=== PATIENT | male | born 1945 | race Caucasian/White ===

== ENCOUNTER 2023-07-01 12:24 | Emergency (ER) | payer MEDICARE, OTHER ==
[2023-07-01] MEDS: DIATR MEGLU/DIATRIZOATE SODIUM 120 ML BOTTLE PO STA ×2 (14:09→14:21)
[2023-07-01] MEDS: MINERAL OIL ENEMA 133 ML BOTTLE RC STA (14:10)
[2023-07-01] MEDS: DIATRIZOATE MEGLU/DIATRIZO SOD 30 ML BOTTLE PO STA (14:21)
--- NOTE | 2023-07-01 14:56 | ED Physician Documentation ---
History of Present Illness - Stated complaint Stated Complaint: ABD PX,CONSTIPATION - Chief complaint Chief Complaint: Abd Pain - History obtained from History obtained from: Patient - History of Present Illness Timing: Today Pain level max: 7 Pain level now: 7 - Additonal information Additional information: Patient is a 77-year-old male who is visiting from [place]. He is complaining of constipation. He states that he has not had a bowel movement in 7 days. No vomiting. Has some mild abdominal cramping at times. He took milk of magnesia without relief. No fevers. No chills. No recent antibiotics. Review of Systems Constitutional: denies: Fever, Chills Respiratory: denies: Cough GI: denies: Nausea, Vomiting, Diarrhea, Hematemesis, Bloody / black stool : denies: Dysuria Skin: denies: Rash Musculoskeletal: denies: Neck pain, Back pain Neurologic: denies: Headache PD PAST MEDICAL HISTORY - Past Medical History Past Medical History: Yes Cardiovascular: Congestive heart failure, Hypertension, High cholesterol, Other Endocrine/Autoimmune: Type 2 diabetes GI: GERD : Benign prostate hypertrophy, Other Psych: Depression, Anxiety Other Past Medical History: RLS - Allergies Allergies/Adverse Reactions: Allergies Allergy/AdvReac Type Severity Reaction Status Date / Time penicillin G benzathine Allergy Anaphylaxis Verified 07/01/23 12:37 [From Bicillin C-R] penicillin G procaine Allergy Anaphylaxis Verified 07/01/23 12:37 [From Bicillin C-R] - Social History Does the pt smoke?: No Smoking Status: Never smoker PD ED PE NORMAL - Vitals Vital signs reviewed: Yes - General General: Alert and oriented X 3, No acute distress - HEENT HEENT: PERRL, Moist mucous membranes - Neck Neck: Supple, no meningeal sign - Cardiac Cardiac: RRR, Strong equal pulses - Respiratory Respiratory: No respiratory distress, Clear bilaterally - Abdomen Abdomen: Soft, Non tender, Non distended - Rectal Rectal: Other (normal, no stool in rectal vault) - Derm Derm: Warm and dry - Extremities Extremities: No edema, No calf tenderness / cord - Neuro Neuro: Alert and oriented X 3 - Psych Psych: Normal mood, Normal affect Results - Vitals Vitals: Vital Signs - 24 hr 07/01/23 07/01/23 07/01/23 12:32 14:36 15:14 Temperature 36.9 C 36.9 C Heart Rate 64 52 L 58 L Respiratory 16 18 18 Rate Blood Pressure 154/69 H 160/70 H 160/70 H O2 Saturation 97 98 98 Oxygen O2 Source Room air PD Medical Decision Making - ED course Complexity details: reviewed results, re-evaluated patient, considered differential, d/w patient, d/w family ED course: 77-year-old male was given a enema with no bowel movement. Does not have any stool in the rectal vault. Complains of constipation for 1 week. Tolerating p.o. without difficulty here. No fevers. No chills. Given undiluted Gastrografin. Likely that this will produce a bowel movement in the next several hours at home. Patient is not having any significant pain. No abdominal tenderness. No evidence of bowel obstruction or perforation. Patient is well-appearing, nontoxic. Afebrile. If the patient were to develop vomiting or abdominal pain, would consider CT scan at that time. Patient counseled regarding signs and symptoms for which I believe and urgent re-evaluation would be necessary. Patient with good understanding of and agreement to plan and is comfortable going home at this time This document was made in part using voice recognition software. While efforts are made to proofread this document, sound alike and grammatical errors may occur. Departure - Departure Disposition: 01 Home, Self Care Clinical Impression: Constipation Qualifiers: Constipation type: unspecified constipation type Qualified Code(s): K59.00 - Constipation, unspecified Condition: Good Instructions: ED Constipation Follow-Up: your,doctor in 1 week [Other] Comments: Drink plenty of fluids today. You should produce a bowel movement within the next 12 to 24 hours. Please return for vomiting, worsening pain or other new or worrisome symptoms. Forms: PCP List Discharge Date/Time: 07/01/23 15:15
[2023-07-01 15:12] VITALS: BP 160/70; O2SAT 98
== END 2023-07-01 15:15 | disposition home or self-care (01) ==
LOC: ED 12:24
DX: K59.00 Constipation, unspecified (principal); I10 Essential (primary) hypertension; E11.9 Type 2 diabetes mellitus without complications
CPT/HCPCS: 99283; A9270; Q9963